=== PATIENT | female | born 1995 | race Caucasian/White ===

== ENCOUNTER 2018-03-18 12:56 | Inpatient (IN) | payer OTHER, MEDICAID ==
[2018-03-18] MEDS ORDERED: MINERAL OIL PO PRN (13:16)
[2018-03-18] MEDS ORDERED: SUBLIMAZE IV PRN (13:16)
[2018-03-18] MEDS ORDERED: ZOFRAN IV PRN (13:16)
[2018-03-18] MEDS ORDERED: XYLOCAINE 2% INFILTRATI ONE ×2 (13:16→19:53)
--- NOTE | 2018-03-18 13:24 | History and Physical Report ---
History of Present Illness Date of examination: 03/18/18 Date of admission: 03/18/18 12:58 Chief complaint: Sent from office for IOL, 41+1 weeks, for nonreassuring monitoring. EFW 9 #4, SOL 17.9 History of present illness: EDC Calculations by LMP: 03/10/2018 Past History : 2 Term Births: 1 Premature Births: 0 Living Children: 1 Para: 1 Mult. Births: 0 Prev : 0 Prev. attempt? none Aborta: 0 Elect. Ab: 0 Spont. Ab: 0 Ectopics: 0 # 1 Delivery date: 11/25/2010 Weeks Gestation: 41 labor: no Delivery type: Vaginal Hours of labor: 24 Anesthesia type: IV medication Delivery location: [facility] Sex: female weight: 7.69 Name: Rebecca Comments: Induction for postdates Past Medical History: Asthma Allergies-seasonal Past Surgical History: Reviewed history from 06/24/2010 and no changes required: Tonsillectomy 8yo Family History Summary: Other family member - Has Family History of Diabetes - Entered On: 10/25/2017 Other family member - Has Family History of Asthma - Entered On: 10/25/2017 General Comments - FH: Family History of Hypertension No Family History of Breast Cancer No Family History of Cervical Cancer No Family History of Colon Cancer Social History: Patient is single unemployed Risk Factors: Smoked Tobacco Use: Never smoker Drug use: yes Substance: marijuana Alcohol use: yes Drinks per day: social Dietary Counseling: pn yes Past Medical History Abnormal PAP: negative Uterine Anomaly: negative Social Hx: Patient is single unemployed Infection History Hx of STD: none Personal hx. of genital herpes: no Genetic History Congenital Heart Defect: Mom: no Dad: no Zafar Disease: Mom: no Dad: no Thalassemia Mom: no Dad: no Neural Tube Defect Mom: no Dad: no Down's Syndrome Mom: no Dad: no Gómez-Sachs Mom: no Dad: no Sickle Cell Disease/Trait Mom: no Dad: no Hemophilia Mom: no Dad: no Muscular Dystrophy Mom: no Dad: no Cystic Fibrosis Mom: no Dad: no Yuko Chorea Mom: no Dad: no Mental Retardation Mom: no Dad: no Fragile X Mom: no Dad: no Other Genetic/Chromosomal Disorder Mom: no Dad: no Child w/other defect Mom: no Dad: no Enviromental Exposures Xray Exposure: no Medication, drug, or alcohol use since LMP: no Chemical/Other Exposure: no Exposure to Cat Liter: yes Hx of Parvovirus (Fifth Disease): no Current Allergies (reviewed today): No known allergies Past History Past Medical History: other (see HPI) Past Surgical History: other (see HPI) 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 (see HPI) - Obstetrical History Expected Date of Delivery: 03/10/18 Actual Gestation: 41 Week(s) 1 Day(s) : 2 Para: 1 Hx # Term Pregnancies: 1 Number of Pregnancies: 0 Spontaneous Abortions: 0 Induced : 0 Number of Living Children: 1 Review of Systems All systems: negative - Physical Exam Breasts: Positive: normal Cardiovascular: Regular rate Lungs: Positive: Clear to auscultation, Normal air movement Abdomen: Positive: normal appearance, soft, normal bowel sounds Genitourinary (Female): Positive: normal external genitalia, normal perenium Vulva: both: normal Vagina: Positive: normal moisture Uterus: Positive: normal size, normal contour Anus/Rectum: Positive: normal perianal skin Extremities: Positive: normal Deep Tendon Reflex Grade: Normal +2 - Obstetrical FHR: category 2 Uterine Contraction Monitor Mode: External Cervical Dilatation: 3 (vertex, IBOW) Cervical Effacement Percentage: 60 station: -2 Uterine Contraction Pattern: Irregular Uterine Tone Measurement Phase: Contraction Uterine Contraction Intensity: Mild Results All other labs normal. Assessment and Plan 22y/o @ 41+1 weeks, Seen in office for postdates testing. u/s EFW 9#4oz, SOL 17.9. NST nonreactive - no accels, one possible late decel when she was on her back. Accoustic stim with no response in fht or movement. SVE 3/60/-2 , vertex, IBOW noted. reviewed EFW 9#4oz and risk for shoulder dystocia with potential for nerve/clavical/brain injury. Patient states she would like to try for vaginal delivery. reviewed with Dr. Paz - plan to start IOL with pitocin today. GBS negative. Admission orders in EMR. - Patient Problems (1) 41 weeks gestation of Current Visit: Yes Status: Acute (2) Non-reassuring electronic monitoring tracing Current Visit: Yes Status: Acute
[2018-03-18] MEDS ORDERED: LACTATED RINGERS 1,000 ML IV SCH (14:00)
[2018-03-18 15:28] LABS: Hematocrit 36.4 % (30.3-42.9); Hemoglobin 12.4 gm/dl (10.1-14.3); Mean Corpuscular HGB Conc 34 % (30-34); Mean Corpuscular Hemoglobin 28 pg (28-32); Mean Corpuscular Volume 81 fl (79-97); Platelet Count 284 K/mm3 (140-440); Red Blood Count 4.49 M/mm3 (3.65-5.03); Red Cell Distribution Width 16.3 % (13.2-15.2)
[2018-03-18] MEDS ORDERED: BRETHINE SUB-Q PRN (15:30)
[2018-03-18] MEDS ORDERED: PITOCin/NS 20 UNIT/1000ML DRIP 20 UNITS/1,000 ML BAG IV SCH (15:30)
[2018-03-18] MEDS ORDERED: PITOCin/NS 30 UNIT/500ML 30 UNITS/500 ML BAG IV SCH (15:30)
--- NOTE | 2018-03-18 19:04 | Progress Note ---
Assessment and Plan - Patient Problems (1) Non-reassuring electronic monitoring tracing Current Visit: Yes Status: Acute Plan to address problem: -cont with IOL -anticipate Subjective - Subjective Date of service: 03/18/18 Principal diagnosis: post dates s/p augmentation of latent labor d/t Nonreactive nst Interval history: Pt s/p IV pain meds but still c/p having pain. I d/w epidural placement and she declines at this time. I d/w possible shoulder dystocia as this baby in 2lbs heavier than first baby. Pt expressed understanding and questions were addressed and answered. Patient reports: loss of fluid, movement normal, contractions, no new complaints Objective - Vital Signs Vital Signs: Vital Signs - 12hr 03/18/18 03/18/18 03/18/18 13:27 14:14 15:14 Temperature 98.0 F Pulse Rate 85 87 Blood Pressure 101/57 111/69 03/18/18 03/18/18 03/18/18 16:15 17:15 18:16 Temperature Pulse Rate 102 H 103 H 101 H Blood Pressure 125/68 123/73 124/69 - Exam FHR: category 1 Cervical Dilatation: 7.5 Cervical Effacement Percentage: 100 station: -1 Uterine Contraction Pattern: Regular Uterine Tone Measurement Phase: Resting Uterine Contraction Intensity: Moderate Extremities: normal Deep Tendon Reflex Grade: Normal +2 - Labs Labs: Abnormal Labs 03/18/18 14:00 RDW 16.3 H Laboratory Results - last 24 hr 03/18/18 03/18/18 14:00 14:00 WBC 10.4 RBC 4.49 Hgb 12.4 Hct 36.4 MCV 81 MCH 28 MCHC 34 RDW 16.3 H Plt Count 284 Blood Type O POSITIVE Antibody Screen Negative
--- NOTE | 2018-03-18 20:31 | Procedure Note ---
OB Delivery Note - Delivery Date of Delivery: 03/18/18 Surgeon: SYBIL RAY Estimated blood loss: other (350) - Vaginal Delivery presentation: vertex Delivery position: OA Intrapartum events: meconium (very light) Delivery induction: oxytocin Delivery augmentation: rupture of membranes, pitocin Delivery monitor: external FHT, external uterine, internal FHT, internal uterine Route of delivery: Delivery placenta: spontaneous Delivery cord: 3 umbilical vessels Episiotomy: none Delivery laceration: 1st degree (periurethral; perineal) Delivery repair: vicryl (3-0 of perineal only) Anesthesia: local Delivery comments: delivery as above was not complicate. Ant shoulder and rest of delivered w/o difficulty. Infant briefly placed on maternal abdomen and then handed to waiting nursing staff and taken to [place] warm. Placenta delivered spontaneously intact. Cord blood was collected. Lacerations as above and repaired with single [id number] stitch. Mother and infant stable in LDR. - Infant A at 1 minute: 8 at 5 minutes: 9 Infant Gender: Female (8lbs 8.8oz)
[2018-03-18] MEDS ORDERED: BENADRYL PO PRN (20:48)
[2018-03-18] MEDS ORDERED: DULCOLAX PR PRN (20:48)
[2018-03-18] MEDS ORDERED: PHENERGAN PO PRN (20:48)
[2018-03-18] MEDS ORDERED: TYLENOL PO PRN (20:48)
[2018-03-18] MEDS ORDERED: LANSINOH TP PRN (20:48)
[2018-03-18] MEDS ORDERED: TUCKS PAD TP PRN (20:48)
[2018-03-18] MEDS ORDERED: SODIUM CHLORIDE FLUSH SYRINGE 10 ML IV PRN (21:00)
[2018-03-19] MEDS: MOTRIN PO SCH ×4 (00:22→18:38)
[2018-03-19 08:45] LABS: Hematocrit 33.5 % (30.3-42.9); Hemoglobin 11.3 gm/dl (10.1-14.3)
--- NOTE | 2018-03-19 16:20 | Discharge Summary ---
Providers - Providers Date of Admission: 03/18/18 12:58 Date of discharge: 03/19/18 Attending physician: SYBIL RAY Primary care physician: SYBIL RAY Hospitalization Reason for admission: induction of labor (posterm, NRFHT's in office) Delivery: Other procedures: none complications: none Discharge diagnosis: IUP at term delivered baby: male Hospital course: unremarkable, desire d/c home if baby allowed home today Condition at discharge: Poor Disposition: DC-01 TO HOME OR SELFCARE - Discharge Diagnoses (1) Delivery normal Status: Acute Plan - Discharge Medications Prescriptions: Lidocain2.5%/Prilocai2.5% [Emla] 5 gm TP ONCE #1 tube - Provider Discharge Summary Activity: routine, no sex for 6 weeks, no heavy lifting 4 weeks, no strenuous exercise Diet: routine Instructions: routine Additional instructions: [] Smoking cessation referral if applicable(refer to patient education folder for contact #) [] Refer to [facility]'s [facility] Booklet Call your doctor immediately for: * Fever > 100.5 * Heavy vaginal bleeding ( >1 pad per hour) * Severe persistent headache * Shortness of breath * Reddened, hot, painful area to leg or breast * Drainage or odor from incision. * Keep incision clean and dry at all times and follow doctor's instructions regarding bathing/showering - Follow up plan Follow up: SYBIL RAY MD [Primary Care Provider] - 6 Weeks (Call office wednesday to schedule circumcision for your son if your desire. )
[2018-03-20] MEDS ORDERED: BOOSTRIX IM ONE (06:00)
[2018-03-20 15:05] VITALS: BP 132/85
== END 2018-03-20 13:00 | disposition home or self-care (01) | DRG 775 ==
LOC: TRG 12:56 → LD 12:58 → OB 23:07
PROVIDERS: ADMIT Obstetrics & Gynecology; ATTEND Obstetrics & Gynecology
PROC: 10E0XZZ Delivery of Products of Conception, External Approach (ICD-10-PCS; principal; 2018-03-18)
PROC: 3E033VJ Introduction of Other Hormone into Peripheral Vein, Percutaneous Approach (ICD-10-PCS; 2018-03-18)
PROC: 0HQ9XZZ Repair Perineum Skin, External Approach (ICD-10-PCS; 2018-03-18)
PROC: 0UQMXZZ Repair Vulva, External Approach (ICD-10-PCS; 2018-03-18)
DX: O48.0 Post-term pregnancy (principal); Z3A.41 41 weeks gestation of pregnancy; O76 Abnormality in fetal heart rate and rhythm complicating labor and delivery; O77.0 Labor and delivery complicated by meconium in amniotic fluid; O71.82 Other specified trauma to perineum and vulva; O70.0 First degree perineal laceration during delivery; Z37.0 Single live birth
CPT/HCPCS: 36415; 85014; 85018; 85027; 86592; 86850; 86900; 86901; 88307; J2590; J3010; J7120

== ENCOUNTER 2019-03-18 01:36 | Observation (INO) | payer MEDICAID ==
[2019-03-18] MEDS ORDERED: ATROVENT IH ONE (02:23)
[2019-03-18] MEDS ORDERED: NACL 0.9% 1000 ML 1,000 ML IV ONE (02:23)
[2019-03-18] MEDS ORDERED: SOLU-Medrol IV ONE (02:23)
[2019-03-18] MEDS ORDERED: PROVENTIL IH ONE ×2 (02:23→09:46)
[2019-03-18] MEDS ORDERED: ATIVAN IV ONE (02:24)
[2019-03-18 02:36] LABS: HCG Qualitative,Urine Negative (Negative)
[2019-03-18] MEDS ORDERED: LEVALBUTEROL IH ONE ×2 (02:42→03:15)
[2019-03-18] MEDS ORDERED: XOPENEX IH ONE (02:47)
[2019-03-18 02:53] LABS: Basophils # (Auto) 0.1 K/mm3 (0.0-0.1); Basophils % (Auto) 0.9 % (0.0-1.8); Eosinophils % (Auto) 5.7 % (0.0-4.3); Hematocrit 38.5 % (30.3-42.9); Hemoglobin 12.8 gm/dl (10.1-14.3); Lymphocytes # (Auto) 1.1 K/mm3 (1.2-5.4); Lymphocytes % (Auto) 6.6 % (13.4-35.0); Mean Corpuscular HGB Conc 33 % (30-34); Mean Corpuscular Volume 76 fl (79-97); Monocytes # (Auto) 0.8 K/mm3 (0.0-0.8); Monocytes % (Auto) 4.8 % (0.0-7.3); Platelet Count 357 K/mm3 (140-440); Red Blood Count 5.07 M/mm3 (3.65-5.03); Red Cell Distribution Width 16.5 % (13.2-15.2)
--- NOTE | 2019-03-18 03:13 | XRay Report ---
CHEST 1 VIEW 03/18/2019 2:39 AM INDICATION / CLINICAL INFORMATION: Cough and YOVANA. COMPARISON: None available. FINDINGS: SUPPORT DEVICES: None. HEART / MEDIASTINUM: No significant abnormality. LUNGS / PLEURA: No significant pulmonary or pleural abnormality. No pneumothorax. ADDITIONAL FINDINGS: No significant additional findings. IMPRESSION: 1. No acute findings. Signer Name: Juliocesar Cooper MD Signed: 03/18/2019 3:09 AM Workstation Name: [id number]
[2019-03-18 03:21] LABS: BUN/Creatinine Ratio 9; Blood Urea Nitrogen 6 mg/dL (7-17); Calcium 9.9 mg/dL (8.4-10.2); Hemolysis Index 9
[2019-03-18] MEDS ORDERED: MAGNESIUM SULFATE 1 GM in NACL 0.9% 50 ML IV ONE (04:20)
--- NOTE | 2019-03-18 04:26 | Emergency Department Report ---
ED Asthma HPI - General Chief Complaint: Arrhythmia/Palpitations Stated Complaint: YOVANA, RAPID HEARTRATE Time Seen by Provider: 03/18/19 02:18 Source: patient Mode of arrival: Ambulatory Limitations: No Limitations - History of Present Illness Initial Comments: Patient is a 23-year-old female with asthma by history of asthma who is here secondary to asthma attack. Patient states for the past 3-4 days she's had some increased work of breathing cough. Patient states cough is nonproductive but she can taste blood in her mouth occasionally. Patient states that she used her albuterol inhaler up as of 50 times today. Patient states several hours ago heart rate also increased and she is feeling nervous. MD Complaint: "asthma attack", shortness of breath Associated Symptoms: dry cough, chest pain. denies: productive cough, fever Treatments Prior to Arrival: inhaled bronchodilator - Related Data Home Medications Medication Instructions Recorded Confirmed Last Taken Vit-Fe Fumar-FA [ 1 tab PO QDAY 03/19/18 03/19/18 03/12/18 Vitamin] Previous Rx's Medication Instructions Recorded Last Taken Type Lidocain2.5%/Prilocai2.5% [Emla] 5 gm TP ONCE #1 tube 03/19/18 Unknown Rx Allergies Allergy/AdvReac Type Severity Reaction Status Date / Time shellfish derived Allergy Itching Verified 03/18/18 15:02 ED Review of Systems ROS: Stated complaint: YOVANA, RAPID HEARTRATE Other details as noted in HPI Comment: All other systems reviewed and negative ED Past Medical Hx - Past Medical History Previous Medical History?: Yes Hx Hypertension: No Hx Congestive Heart Failure: No Hx Diabetes: No Hx Deep Vein Thrombosis: No Hx Renal Disease: No Hx Sickle Cell Disease: No Hx Seizures: No Hx Asthma: Yes (inhaler used two weeks ago) Hx COPD: No Hx HIV: No - Surgical History Past Surgical History?: No - Social History Smoking Status: Current Every Day Smoker Substance Use Type: Marijuana - Medications Home Medications: Home Medications Medication Instructions Recorded Confirmed Last Taken Type Lidocain2.5%/Prilocai2.5% [Emla] 5 gm TP ONCE #1 tube 03/19/18 Unknown Rx Vit-Fe Fumar-FA [ 1 tab PO QDAY 03/19/18 03/19/18 03/12/18 History Vitamin] ED Physical Exam - General Limitations: No Limitations General appearance: alert, in no apparent distress - Head Head exam: Present: atraumatic, normocephalic - Eye Eye exam: Present: normal appearance, PERRL, EOMI - ENT ENT exam: Present: normal orophraynx, mucous membranes moist - Neck Neck exam: Present: normal inspection - Respiratory Respiratory exam: Present: respiratory distress, wheezes. Absent: normal lung sounds bilaterally, rales, rhonchi - Cardiovascular Cardiovascular Exam: Present: normal rhythm, tachycardia. Absent: systolic murmur, diastolic murmur, rubs, gallop - GI/Abdominal GI/Abdominal exam: Present: soft, normal bowel sounds. Absent: distended, tenderness, guarding, rebound - Extremities Exam Extremities exam: Present: normal inspection - Back Exam Back exam: Present: normal inspection - Neurological Exam Neurological exam: Present: alert, oriented X3 - Psychiatric Psychiatric exam: Present: normal affect, normal mood - Skin Skin exam: Present: warm, dry, intact, normal color. Absent: rash ED Course Vital Signs 03/18/19 03/18/19 01:42 02:45 Temperature 98.3 F Pulse Rate 134 H Pulse Rate [ 137 H Bilateral Throughout] Respiratory 20 Rate Respiratory 22 Rate [Bilateral Throughout] Blood Pressure 139/87 O2 Sat by Pulse 93 Oximetry ED Medical Decision Making - Lab Data Result diagrams: 03/18/19 02:44 03/18/19 02:44 - EKG Data -: EKG Interpreted by Pa EKG shows normal: sinus rhythm, axis, intervals, QRS complexes, ST-T waves Rate: tachycardia - Radiology Data Radiology results: report reviewed (CXR WNL) - Medical Decision Making Patient's wheezing on arrival. Patient given Xopenex and Atrovent. Patient received hour-long neb treatment is still wheezing. Patient to be admitted to the hospitalist service for further care. Critical Care Time: Yes (30) Critical care attestation.: If time is entered above; I have spent that time in minutes in the direct care of this critically ill patient, excluding procedure time. ED Disposition Clinical Impression: Asthma exacerbation Qualifiers: Asthma severity: moderate Asthma persistence: persistent Qualified Code(s): J45.41 - Moderate persistent asthma with (acute) exacerbation Disposition: OP ADMIT IP TO THIS HOSP Is pt being admited?: Yes Does the pt Need Aspirin: No Condition: Stable Referrals: PRIMARY CARE, [Primary Care Provider] - 3-5 Days Time of Disposition: 04:28
[2019-03-18] MEDS ORDERED: XOPENEX IH PRN (05:18)
[2019-03-18] MEDS ORDERED: ROBITUSSIN PO PRN (05:21)
[2019-03-18] MEDS ORDERED: TYLENOL PO PRN (05:22)
[2019-03-18] MEDS ORDERED: EMLA TP ONE (06:00)
--- NOTE | 2019-03-18 06:05 | History and Physical Report ---
CHIEF COMPLAINT: Shortness of breath. Other complaints include palpitation. HISTORY OF PRESENTING ILLNESS: The patient is a 23-year-old female with known history of asthma, presenting with shortness of breath going on for about 3-4 days associated with dry cough and palpitations. There is no history of fever or chills. There is no history of chest pain and the patient says symptoms persisted despite using albuterol inhaler. There is history of associated chest discomfort with coughing. The patient denied history of nausea and vomiting. PAST MEDICAL HISTORY: Pertinent for asthma. PAST SURGICAL HISTORY: Unremarkable. FAMILY HISTORY: Noncontributory. SOCIAL HISTORY: The patient smokes cigarette, uses illicit drug, notably marijuana and does not drink alcohol. MEDICATIONS: The patient is on vitamin one by mouth daily and is also on lidocaine 2.5% topical cream, which is applied once daily. ALLERGIES: THE PATIENT IS ALLERGIC TO SHELLFISH. REVIEW OF SYSTEMS: CONSTITUTIONAL: There is no fever, no chills, no diaphoresis. HEENT: There is no headache or sore throat. CARDIOVASCULAR SYSTEM: There is pleuritic chest pain, but no orthopnea. RESPIRATORY SYSTEM: Shortness of breath is present. Cough is present. Wheezing is present. GASTROINTESTINAL SYSTEM: There is no nausea, no vomiting, no abdominal pain, diarrhea or constipation. NEUROLOGICAL SYSTEM: There is no numbness, no dizziness, no altered mental status. MUSCULOSKELETAL SYSTEM: There is no joint pain or swelling. DERMATOLOGICAL SYSTEM: There is no skin rash or itching. GENITOURINARY SYSTEM: There is no dysuria, hematuria, or flank pain. Rest of system review is normal. PHYSICAL EXAMINATION: GENERAL: At the time of exam, the patient was found to be alert, oriented x 3 and not in acute distress. VITAL SIGNS: At the initial time of presentation showed temperature of 98.3 degrees Fahrenheit, pulse of 134, respirations 20, blood pressure 139/87, O2 sat of 93% on room air. HEENT: Showed pupils to be equal, round, reactive to light and accommodating. Extraocular muscles are intact. NECK: Supple with no JVD or carotid bruit. CARDIOVASCULAR SYSTEM: Showed normal first and second heart sounds with no gallops or murmurs. RESPIRATORY SYSTEM: Showed reduced air entry on both sides of the lungs with respiratory wheezing and no use of accessory respiratory muscles. GASTROINTESTINAL SYSTEM: Showed abdomen to be full, soft, nontender with no organomegaly or rigidity. NEUROLOGIC: Shows no focal deficit. MUSCULOSKELETAL SYSTEM: Showed no joint swelling or tenderness. DERMATOLOGICAL SYSTEM: Showed no skin rash. GENITOURINARY SYSTEM: Showing no costovertebral angle tenderness. PERTINENT LABORATORY DATA AND IMAGING STUDIES: The patient had CBC done with elevated white count of 16,800, normal hemoglobin, normal hematocrit with CBC differential showing elevated segmentary neutrophil count of 82%. The patient's chemistry was unremarkable except for low CO2 of 21. Urine test was negative. DIAGNOSIS: Asthma exacerbation. PLAN OF CARE: 1. The patient will be placed on observation in the medical shen. 2. The patient will be on Xopenex breathing treatment 0.63 mg q. 6 hours as needed for shortness of breath. 3. The patient will be on IV Solu-Medrol 60 mg q. 8 hours and will also be on IV Levaquin 750 mg daily. 4. The patient will be on Robitussin 200 mg by mouth every 4 hours as needed for cough and will be on Tylenol 650 mg by mouth every 4 hours as needed for fever and chills. 5. The patient will be on Lovenox 30 mg subcutaneous daily for DVT prophylaxis and will continue to be on oxygen by nasal cannula at 2 liters per minute. 6. The patient will be on p.r.n. medications like Tylenol 650 mg by mouth every 4 hours for fever and headache and IV Zofran 4 mg every 8 hours for nausea and vomiting. 7. The patient's diet will be regular diet. [facility]# [id number] OCN/NTS
[2019-03-18] MEDS ORDERED: MAGNESIUM SULFATE 2GM/50ML 2 GM/50 ML BAG IV ONE (07:33)
[2019-03-18 08:26] VITALS: BP 133/61
[2019-03-18] MEDS ORDERED: PROVENTIL IH PRN (09:31)
[2019-03-18] MEDS ORDERED: LEVAQUIN 750MG/150ML 750 MG/150 ML BAG IV SCH (10:00)
[2019-03-18] MEDS ORDERED: PRENATAL VITAMIN PO SCH (10:00)
[2019-03-18] MEDS ORDERED: LOVENOX SUB-Q SCH ×2 (10:00)
[2019-03-18] MEDS ORDERED: SOLU-Medrol IV SCH (10:00)
--- NOTE | 2019-03-18 12:17 | Discharge Summary ---
Providers - Providers Date of Admission: 03/18/19 06:20 Date of discharge: 03/18/19 Attending physician: VENKAT WELLS Primary care physician: WATER SYSTEMS ENGINEER Hospitalization Condition: Stable Pertinent studies: Chest x-ray: No acute finding Hospital course: This is a 23-year-old female with history of asthma presented with the hospital with worsening shortness of breath. Patient was admitted to medical floor with scheduled nebs, iv abx, iv steroids and supplemental O2 to keep O2 sat at 94%. CXR showed no infiltrates. Patients symptom improved with medical management. [facility]. Discharge diagnosis: Acute asthma exacerbation, improved Activity bronchitis SIRS due to acute asthma with leukocytosis and tachycardia Disposition: DC- TO HOME OR SELFCARE Time spent for discharge: 34 minutes Core Measure Documentation - Palliative Care Palliative Care/ Comfort Measures: Not Applicable - Core Measures Any of the following diagnoses?: none Exam - Constitutional Vitals: Temp Pulse Resp BP Pulse Ox 97.6 F 114 H 20 133/61 92 03/18/19 08:26 03/18/19 08:09 03/18/19 08:09 03/18/19 08:09 03/18/19 09:53 General appearance: Present: no acute distress, well-nourished - EENT Eyes: Present: PERRL ENT: hearing intact, clear oral mucosa - Neck Neck: Present: supple, normal ROM - Respiratory Respiratory effort: normal Respiratory: bilateral: CTA - Cardiovascular Heart Sounds: Present: S1 & S2. Absent: rub, click - Extremities Extremities: pulses symmetrical, No edema Peripheral Pulses: within normal limits - Abdominal General gastrointestinal: Present: soft, non-tender, non-distended, normal bowel sounds - Integumentary Integumentary: Present: clear, warm, dry - Musculoskeletal Musculoskeletal: gait normal, strength equal bilaterally - Psychiatric Psychiatric: appropriate mood/affect, intact judgment & insight - Neurologic Neurologic: CNII-XII intact, moves all extremities Plan Activity: advance as tolerated Weight Bearing Status: Weight Bear as Tolerated Diet: low fat Follow up with: PRIMARY CARE, [Primary Care Provider] - 3-5 Days JUSTYN CHANG MD [Staff Physician] - 7 Days Prescriptions: predniSONE [Deltasone] 50 mg PO QDAY #5 tab ALBUTEROL Inhaler (OR & NICU) [Proair] 2 puff IH QID PRN #1 vial PRN Reason: Shortness Of Breath Azithromycin [Zithromax] 250 mg PO DAILY #5 tablet
[2019-03-18] MEDS ORDERED: ZITHROMAX PO SCH (13:00)
[2019-03-18] MEDS ORDERED: DUONEB *Not for PRN Use IH SCH (14:00)
== END 2019-03-18 13:30 | disposition home or self-care (01) ==
LOC: ED 01:36 → 3A 06:20
PROVIDERS: ADMIT Internal Medicine; ATTEND Internal Medicine
DX: J45.901 Unspecified asthma with (acute) exacerbation (principal); F17.210 Nicotine dependence, cigarettes, uncomplicated
CPT/HCPCS: 36415; 71045; 80048; 81025; 85025; 93005; 93010; 94644; 94760; 96365; 96366; 96375; 96376; 99291; G0378; J1956; J2060; J2930; J3475; J7030; J1650

== ENCOUNTER 2019-12-17 06:24 | Inpatient (IN) | payer MEDICAID, OTHER ==
[2019-12-17] MEDS ORDERED: LACTATED RINGERS 1,000 ML ONE (07:47)
[2019-12-17] MEDS ORDERED: TERBUTALINE 1 MG/1 ML INJ SUB-Q PRN (08:05)
[2019-12-17] MEDS ORDERED: LIDOCAINE (2%) 20 MG/1 ML VIAL 20 ML MDV INFILTRATI ONE (08:05)
[2019-12-17] MEDS ORDERED: ONDANSETRON 4 MG/2 ML INJ IV PRN ×2 (08:05→12:38)
[2019-12-17] MEDS ORDERED: fentaNYL 100 MCG/2 ML INJ IV PRN (08:05)
[2019-12-17] MEDS: LACTATED RINGERS 1,000 ML IV SCH ×2 (08:25→08:49)
[2019-12-17] MEDS ORDERED: BUTORPHANOL 2 MG/1 ML INJ IV PRN (09:00)
[2019-12-17] MEDS ORDERED: OXYTOCIN 20 UNIT/1000ML DRIP 20 UNITS/1,000 ML BAG IV SCH ×2 (09:00→12:38)
[2019-12-17] MEDS ORDERED: OXYTOCIN DRIP 30 UNITS/500 ML BAG IV SCH ×2 (09:00→10:00)
--- NOTE | 2019-12-17 09:09 | History and Physical Report ---
History of Present Illness Date of examination: 12/17/19 Date of admission: 12/17/19 06:24 Chief complaint: labor contractions History of present illness: EDC Confirmation: 12/08/2019 Past History : 3 Term Births: 2 Premature Births: 0 Living Children: 2 Para: 2 Mult. Births: 0 Prev : 0 Prev. attempt? none Aborta: 0 Elect. Ab: 0 Spont. Ab: 0 Ectopics: 0 # 1 Delivery date: 11/25/2010 Weeks Gestation: 41 labor: no Delivery type: Vaginal Hours of labor: 24 Anesthesia type: IV medication Delivery location: [facility] Infant Sex: female weight: 7.69 Name: Rebecca Comments: Induction for postdates # 2 Delivery date: 03/18/2018 Weeks Gestation: 41 Delivery type: Vaginal Anesthesia type: none Delivery location: [facility] Infant Sex: Male weight: 8.56 Name: Will Comments: INDUCED DUE TO NON REACTIVE NST Past Medical History: Reviewed history from 10/25/2017 and no changes required: Asthma Allergies-seasonal Past Surgical History: Reviewed history from 06/24/2010 and no changes required: Tonsillectomy 8yo Past Medical History Abnormal PAP: No Uterine Anomaly: negative Social Hx: Patient is single unemployed Infection History Hx of STD: chlamydia HIV Risk Eval: low risk Hepatitis B Risk Eval: low risk Personal hx. of genital herpes: no Partner hx. of genital herpes: no Rash, Viral, or Febrile illness since last LMP? no Genetic History Congenital Heart Defect: Mom: no Dad: no Zafar Disease: Mom: no Dad: no Thalassemia Mom: no Dad: no Neural Tube Defect Mom: no Dad: no Down's Syndrome Mom: no Dad: no Gómez-Sachs Mom: no Dad: no Sickle Cell Disease/Trait Mom: no Dad: no Hemophilia Mom: no Dad: no Muscular Dystrophy Mom: no Dad: no Cystic Fibrosis Mom: no Dad: no Yuko Chorea Mom: no Dad: no Mental Retardation Mom: no Dad: no Fragile X Mom: no Dad: no Other Genetic/Chromosomal Disorder Mom: no Dad: no Child w/other defect Mom: no Dad: no Enviromental Exposures Xray Exposure: no Medication, drug, or alcohol use since LMP: no Chemical/Other Exposure: no Exposure to Cat Liter: no Hx of Parvovirus (Fifth Disease): no Occupational Exposure to Children: none Active Medications (reviewed today): ALBUTEROL SULFATE (ALBUTEROL SULFATE) () one to two puffs q4-6hr prn wheezing BREO FOR ASTHMA () one dose QD Current Allergies (reviewed today): No known allergies Past History Past Medical History: other (see HPI) Past Surgical History: other (see HPIs) [employer]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 (see HPI) Family/Genetic History: other (see HPI) - Obstetrical History Expected Date of Delivery: 12/08/19 Actual Gestation: 41 Week(s) 2 Day(s) : 3 Para: 2 Hx # Term Pregnancies: 2 Number of Pregnancies: 0 Spontaneous Abortions: 0 Induced : 0 Number of Living Children: 2 Medications and Allergies Allergies Allergy/AdvReac Type Severity Reaction Status Date / Time shellfish derived Allergy Itching Verified 03/18/18 15:02 Home Medications Medication Instructions Recorded Confirmed Last Taken Type Albuterol INH(or & Nicu Only) 2 puff IH QID PRN #1 vial 03/18/19 Unknown Rx [Proair] Ibuprofen [Motrin 800 MG tab] 800 mg PO Q8HR PRN #30 tablet 12/17/19 Unknown Rx Lidocain2.5%/Prilocai2.5% [Emla] 5 gm TP ONCE PRN #1 tube 12/17/19 Unknown Rx Active Meds: Active Medications Butorphanol Tartrate (Stadol) 2 mg IV Q2H PRN PRN Reason: Pain , Severe (7-10) Ephedrine Sulfate (Ephedrine Sulfate) 10 mg IV Q2M PRN PRN Reason: Hypotension Fentanyl (Sublimaze) 100 mcg IV Q2H PRN PRN Reason: Pain,Severe (7-10) LABOR PAIN Last Admin: 12/17/19 08:40 Dose: 100 mcg Documented by: Oxytocin/Sodium Chloride (Pitocin/Ns 20 Unit/1000ml Drip) 20 units in 1,000 mls @ 125 mls/hr IV DIRECT NAHED Oxytocin/Sodium Chloride (Pitocin/Ns 30 Unit/500ml) 30 units in 500 mls @ 1 mls/hr IV TITR NAHED; Protocol Stop: 12/17/19 10:00 Oxytocin/Sodium Chloride (Pitocin/Ns 30 Unit/500ml) 30 units in 500 mls @ 4 mls/hr IV TITR NAHED; Protocol Lactated Ringer's (Lactated Ringers) 1,000 mls @ 125 mls/hr IV DIRECT NAHED Last Admin: 12/17/19 08:49 Dose: 125 mls/hr Documented by: Mineral Oil (Mineral Oil) 30 ml PO QHS PRN PRN Reason: Constipation Ondansetron HCl (Zofran) 4 mg IV Q8H PRN PRN Reason: Nausea And Vomiting Terbutaline Sulfate (Brethine) 0.25 mg SUB-Q ONCE PRN PRN Reason: Hyperstimulation/Hypertonicity Stop: 12/17/19 23:59 Review of Systems All systems: negative - Vital Signs Vital signs: Vital Signs Temp Pulse Resp BP Pulse Ox 97.8 F 84 12 111/57 97 12/17/19 07:27 12/17/19 07:27 12/17/19 07:27 12/17/19 07:27 12/17/19 07:27 Temp Pulse Resp BP Pulse Ox 97.8 F 108 H 12 139/75 96 12/17/19 07:27 12/17/19 09:04 12/17/19 07:27 12/17/19 08:49 12/17/19 09:04 - Physical Exam Breasts: Positive: normal Cardiovascular: Regular rate Lungs: Positive: Clear to auscultation, Normal air movement Abdomen: Positive: normal appearance, soft Genitourinary (Female): Positive: normal external genitalia, normal perenium Vulva: both: normal Vagina: Positive: normal moisture (normal bloody show) Uterus: Positive: normal size, normal contour Anus/Rectum: Positive: normal perianal skin Extremities: Positive: normal Deep Tendon Reflex Grade: Normal +2 - Obstetrical FHR: category 1 Uterine Contraction Monitor Mode: External Uterine Contraction Pattern: Regular Uterine Tone Measurement Phase: Contraction Uterine Contraction Intensity: Moderate Results Result Diagrams: 12/17/19 08:58 All other labs normal. Assessment and Plan 24y/o @ 41+2 weeks, scheduled for IOL tonight but arrived this morning in labor. GBS neg. IVF bolusing for epidural. Admission orders in EMR. Pelvis feels adequate for EFW (8#8oz by u/s 12/15/19). Anticipate . - Patient Problems (1) 41 weeks gestation of Current Visit: Yes Status: Acute
[2019-12-17 09:11] LABS: Hematocrit 38.6 % (30.3-42.9); Hemoglobin 13.2 gm/dl (10.1-14.3); Mean Corpuscular HGB Conc 34 % (30-34); Mean Corpuscular Volume 84 fl (79-97); Platelet Count 236 K/mm3 (140-440); Red Blood Count 4.61 M/mm3 (3.65-5.03); Red Cell Distribution Width 16.2 % (13.2-15.2)
[2019-12-17] MEDS ORDERED: fentaNYL-BUPIV 2 MCG/ML-0.125% 200 MCG/100 ML BAG EPIDURAL ONE (09:13)
[2019-12-17] MEDS ORDERED: DEXMEDETOMIDINE 200 MCG/2 ML VIAL IV ONE (09:13)
[2019-12-17] MEDS: ePHEDrine SULFATE 50 MG/1 ML INJ IV PRN ×2 (09:41→09:43)
--- NOTE | 2019-12-17 09:48 | Anesthesia Consultation ---
Anesthesia Consult and Med Hx Date of service: 12/17/19 - Airway Anesthetic Teeth Evaluation: Good ROM Head & Neck: Adequate Mental/Hyoid Distance: Adequate Mallampati Class: Class II Intubation Access Assessment: Probably Good - Pulmonary Exam CTA: Yes - Cardiac Exam Cardiac Exam: RRR - Pre-Operative Health Status ASA Pre-Surgery Classification: ASA2 Proposed Anesthetic Plan: Epidural - Pulmonary Hx Asthma: Yes COPD: No Hx Pneumonia: No - Cardiovascular System Hx Hypertension: No - Central Nervous System Hx Seizures: No Hx Psychiatric Problems: No - Endocrine Hx Renal Disease: No Hx End Stage Renal Disease: No Hx Hypothyroidism: No Hx Hyperthyroidism: No - Hematic Hx Anemia: No Hx Sickle Cell Disease: No - Other Systems Hx Alcohol Use: Yes Hx Cancer: No
--- NOTE | 2019-12-17 09:49 | Progress Note ---
Labor Epidural - Labor Epidural Start Time: 09:17 Stop Time: :20 Performed by:: PREMA OH Procedure: Patient is requesting epidural for labor pain. H&P, and labs reviewed. Procedure explained, questions answered, consent obtained. Patient in sitting position with blood pressure cuff and pulse ox on and working. Timeout performed immediately before start of procedure. Sterile betadine prep/drape. 3 mL 1% lidocaine skin wheal at L[3]-L[4]. 18-gauge Touhy epidural needle advanced to [id number] with saline at [7] cm. Epidural dexmedetomidine [30] mcg administered. Epidural catheter advanced to [12] cm, negative aspiration for blood and csf, negative test dose 3 ml 1.5% lidocaine with epinephrine. Sterile steri-strips and tegaderm applied, followed by tape reinforcement. Patient tolerated procedure well.
[2019-12-17] MEDS ORDERED: ePHEDrine SULFATE 50 MG/1 ML INJ IV PRN (10:00)
[2019-12-17] MEDS ORDERED: NALOXONE 2 MG/2 ML INJ IV PRN (10:00)
[2019-12-17] MEDS ORDERED: fentaNYL-BUPIV 2 MCG/ML-0.125% 200 MCG/100 ML BAG EPIDURAL SCH (10:00)
--- NOTE | 2019-12-17 10:45 | Procedure Note ---
OB Delivery Note - Delivery Date of Delivery: 12/17/19 ( male "Brendon") Refrigeration Person: ALEX MOCK Estimated blood loss: 200cc - Vaginal Delivery presentation: vertex Delivery position: OA (JAY JAY) Intrapartum events: none Delivery induction: none Delivery monitor: external FHT, external uterine Route of delivery: Delivery placenta: spontaneous Delivery cord: nuchal cord (loose CAN x1, easily reduced), 3 umbilical vessels Episiotomy: none Delivery laceration: none Anesthesia: epidural Delivery comments: Male infant del JAY JAY over intact perineum, placed skin to skin on maternal abdomen. terminal mec noted. no shoulder dystocia. 3 vessel cord clamped and cut, cord blood collected. Placenta del intact and complete. no lacerations to repair. EBL 200. Apgars 8/9, wt 9#9oz. Mother and LDR stable. - Infant A at 1 minute: 8 at 5 minutes: 9 Infant Gender: Male (9#9oz)
[2019-12-17] MEDS ORDERED: BENZOCAINE/MENTHOL 20/0.5% TOP SPRAY 56 GM TP PRN (12:38)
[2019-12-17] MEDS ORDERED: WITCH HAZEL/ GLYCERIN PAD TP PRN (12:38)
[2019-12-17] MEDS ORDERED: diphenhydrAMINE 25 MG CAP PO PRN (12:38)
[2019-12-17] MEDS ORDERED: PROMETHAZINE 25 MG TAB PO PRN (12:38)
[2019-12-17] MEDS ORDERED: IBUPROFEN 600 MG TAB PO SCH (12:38)
[2019-12-17] MEDS ORDERED: LANOLIN/ZINC/DIMETHICONE (LANSINOH) 7 GM TP PRN (12:38)
[2019-12-17] MEDS ORDERED: ACETAMINOPHEN 325 MG TAB PO PRN (13:00)
[2019-12-17] MEDS: IBUPROFEN 800 MG TAB PO SCH ×2 (13:55→20:02)
--- NOTE | 2019-12-17 16:13 | Post Anesthesia Evaluation ---
- Post Anesthesia Evaluation Patient Participated: Yes Airway Patent: Yes Stable Respiratory Function: Yes Nausea/Vomiting: No Temp > 96.8F: Yes Pain Manageable: Yes Adequeate Hydration: Yes Anesthesia Complications: No Block Receding Appropriately: Yes
[2019-12-17] MEDS: DOCUSATE SODIUM 100 MG CAP PO SCH (21:54)
[2019-12-17] MEDS ORDERED: MAGNESIUM HYDROXIDE (MOM) ORAL LIQD UDC PO PRN (22:00)
[2019-12-17] MEDS ORDERED: MINERAL OIL 30 ML ORAL LIQD PO PRN (22:00)
[2019-12-17 23:37] LABS: Hematocrit 31.2 % (30.3-42.9); Hemoglobin 10.7 gm/dl (10.1-14.3)
[2019-12-18] MEDS: IBUPROFEN 800 MG TAB PO SCH ×2 (02:52→10:36)
[2019-12-18] MEDS ORDERED: DIPHtheria,PERTUSSIS(ACELL),TETANUS VACCINE/PF 0.5 ML VIAL IM ONE (06:00)
[2019-12-18 08:51] VITALS: BP 135/78
--- NOTE | 2019-12-18 08:51 | Discharge Summary ---
Providers - Providers Date of Admission: 12/17/19 06:24 Date of discharge: 12/18/19 (Pt stable for discharge home.) Attending physician: LYLY BULLOCK Primary care physician: LYLY BULLOCK Hospitalization Reason for admission: active labor Delivery: Episiotomy: none Laceration: none Other procedures: none complications: none Discharge diagnosis: IUP at term delivered baby: male (No circumcision per patient) Pertinent studies: Pt has one documented BP of 135/92. Was present when BP was taken and patient was moving during that BP. Asked RN taking care of patient to repeat BP. BP # 2 135/78. Pt denies HAJI, blurred vision, spots before her eye, shortness of breath, upper abdominal pain. Hospital course: S: I'm doing well. Passing flatus, voiding, and ambulating without difficulty. BC: Paraguard IUD. O: VSS. H/H 10.7/. Fundus firm, minimal bleeding noted. A: 24 y.o. s/p @ term. Stable for discharge home. P: Discharge home with instructions. To Schedule a visit in 4 weeks. Condition at discharge: Good Disposition: DC-01 TO HOME OR SELFCARE Plan - Discharge Medications Prescriptions: Lidocain2.5%/Prilocai2.5% [Emla] 5 gm TP ONCE PRN #1 tube PRN Reason: Pain Ibuprofen [Motrin 800 MG tab] 800 mg PO Q8HR PRN #30 tablet PRN Reason: Pain - Provider Discharge Summary Activity: routine, no sex for 6 weeks, no heavy lifting 4 weeks, no strenuous exercise Diet: routine Instructions: routine Additional instructions: [] Smoking cessation referral if applicable(refer to patient education folder for contact #) [] Refer to [facility]'s [facility] Booklet Call your doctor immediately for: * Fever > 100.5 * Heavy vaginal bleeding ( >1 pad per hour) * Severe persistent headache * Shortness of breath * Reddened, hot, painful area to leg or breast * Drainage or odor from incision. * Keep incision clean and dry at all times and follow doctor's instructions regarding bathing/showering - Follow up plan Follow up: LYLY BULLOCK MD [Primary Care Provider] - 7 Days (Congratulations!! Please schedule a visit with the office in 4 weeks. If you have any questions or concerns, please do not hesitate to call the office. )
[2019-12-18] MEDS ORDERED: PRENATAL VIT27-FE FUMARATE-FOLIC ACID VIT TAB PO SCH (10:00)
[2019-12-18] MEDS: DOCUSATE SODIUM 100 MG CAP PO SCH (10:37)
== END 2019-12-18 13:50 | disposition home or self-care (01) | DRG 775 ==
LOC: LD 06:24 → OB 12:14
PROVIDERS: ADMIT Obstetrics & Gynecology; ATTEND Obstetrics & Gynecology
PROC: 10E0XZZ Delivery of Products of Conception, External Approach (ICD-10-PCS; principal; 2019-12-17)
PROC: 3E0R3BZ Introduction of Anesthetic Agent into Spinal Canal, Percutaneous Approach (ICD-10-PCS; 2019-12-17)
PROC: 00HU33Z Insertion of Infusion Device into Spinal Canal, Percutaneous Approach (ICD-10-PCS; 2019-12-17)
PROC: 3E0234Z Introduction of Serum, Toxoid and Vaccine into Muscle, Percutaneous Approach (ICD-10-PCS; 2019-12-18)
DX: O69.81X0 Labor and delivery complicated by cord around neck, without compression, not applicable or unspecified (principal); O77.0 Labor and delivery complicated by meconium in amniotic fluid; Z3A.41 41 weeks gestation of pregnancy; Z37.0 Single live birth; Z23 Encounter for immunization; O99.52 Diseases of the respiratory system complicating childbirth; J45.909 Unspecified asthma, uncomplicated; Z91.013 Allergy to seafood
CPT/HCPCS: 36415; 85014; 85018; 85027; 86592; 86850; 86900; 86901; 90471; 90715; G0378; J2590; J3010; J3490; J7120